=== PATIENT | female | born 1965 | race Caucasian/White ===

== ENCOUNTER 2019-08-16 12:01 | Emergency (ER) | payer OTHER, SELFPAY ==
--- OUTSIDE RECORDS SUMMARY | 2019-08-16 12:02 | XMS REPORT ---
:1965 [facility] [address] [place] [address] Care Team Providers Name Role Phone Unavailable Unavailable Unavailable Problems This patient has no known problems. Allergies, Adverse Reactions, Alerts This patient has no known allergies or adverse reactions. Medications This patient has no known medications.
--- NOTE | 2019-08-16 12:54 | RAD REPORT ---
EXAM DESCRIPTION: CT - Head Brain Wo Cont - 08/16/2019 12:45 pm CLINICAL HISTORY: Dizziness COMPARISON: 2017 TECHNIQUE: Computed axial tomography of the head was obtained. IV contrast was not requested. All CT scans are performed using dose optimization technique as appropriate and may include automated exposure control or mA/KV adjustment according to patient size. FINDINGS: An intracranial bleed is not seen . The ventricles are normal in caliber. No extra-axial fluid collection is noted. Fluid within the sinuses/ mastoids is not seen. IMPRESSION: No acute intracranial abnormality is seen. If patient's symptoms persist MRI of the bra in would be recommended.
[2019-08-16] MEDS ORDERED: MECLIZINE HCL 12.5 MG TAB ONE (13:04)
[2019-08-16] MEDS ORDERED: ONDANSETRON 4 MG/2 ML VIAL ONE (13:04)
[2019-08-16] MEDS ORDERED: KETOROLAC 30 MG/ML INJ ONE (13:04)
[2019-08-16 13:20] LABS: Absolute Lymphocytes (CBC) 2.1 K/uL (0.7-4.9); Basophils % 1.2 % (0-1.3); Hematocrit 38.3 % (36.0-45.0); Lymphocytes % 35.2 % (15.3-44.8); Protime INR 0.99; RBC Red Blood Cell Count 4.36 M/uL (3.86-4.86)
[2019-08-16 13:28] LABS: ALT/SGPT 23 U/L (12-78); AST/SGOT 20 U/L (15-37); Albumin 3.7 g/dL (3.4-5.0); Alkaline Phosphatase 89 U/L (45-117); BUN Blood Urea Nitrogen 19 mg/dL (7-18); Bicarbonate 28 mmol/L (21-32); Bilirubin Direct 0.1 mg/dL (0-0.2); Bilirubin Total 0.4 mg/dL (0.2-1.0); Glucose Level 103 mg/dL (74-106); Magnesium 2.5 mg/dL (1.8-2.4); NT PRO-BNP 133 pg/mL (<125); Potassium 4.3 mmol/L (3.5-5.1); Protein, Total 7.2 g/dL (6.4-8.2); Sodium Level 137 mmol/L (136-145); Troponin (Emerg Dept Use Only) < 0.02 ng/mL (0.0-0.045)
--- NOTE | 2019-08-16 13:47 | EKG ---
Test Date: 2019-08-16 Test Time: 12:38:10 Golf Coach: DARION MEASUREMENT RESULTS: Intervals: Rate: 48 SC: 178 QRSD: 90 QT: 460 QTc: 410 [place]: P: 36 SC: 178 QRS: 78 T: 61 INTERPRETIVE STATEMENTS: Marked sinus bradycardia Abnormal ECG Compared to ECG 08/07/2017 08:23:20 No significant changes Electronically Signed On 08-16-19 13:46:42 METAL DRILL PRESS OPERATOR by Mariusz Montilla
--- NOTE | 2019-08-16 13:58 | RAD REPORT ---
EXAM DESCRIPTION: RAD - Chest Single View - 08/16/2019 1:39 pm COMPARISON: Chest Single View dated 08/07/2017; Chest Single View dated 08/06/2017 TECHNIQUE: AP portable chest image was obtained 1330 . FINDINGS: Hours no focal lung parenchymal process seen. Interstitial pattern matches comparison. Hea rt and vasculature are normal. No measurable pleural effusion and no pneumothorax. No acute bony abno rmality seen. No acute aortic findings suspected. IMPRESSION: No acute cardiopulmonary process. No significant interval change.
--- NOTE | 2019-08-16 14:10 | ER ---
Nurse's Notes Formerly [facility] Name: Jazzy Hernandez Age: 54 yrs Sex: Female : 1965 Arrival Date: 08/16/2019 Time: 12:03 Bed 23 Private MD: Diagnosis: Benign paroxysmal vertigo;Headache Presentation: 08/16 12:13 Presenting complaint: Patient states: dizziness that is worse when repositioning, began ss at 0100 this morning. Pt reports she has had an intermittent headache for the past week. Transition of care: patient was not received from another setting of care. Onset of symptoms was August 16, 2019. Risk Assessment: Do you want to hurt yourself or someone else? Patient reports no desire to harm self or others. Initial Sepsis Screen: Does the patient meet any 2 criteria? No. Patient's initial sepsis screen is negative. Does the patient have a suspected source of infection? No. Patient's initial sepsis screen is negative. Care prior to arrival: "Tylenol this AM". 12:13 Method Of Arrival: Ambulatory ss 12:13 Acuity: EMMA 3 ss Historical: - Allergies: 12:21 Codeine; ss - PMHx: 12:21 Asthma; GERD; ss - PSHx: 12:21 Partial Hysterectomy; ss - Immunization history:: Adult Immunizations up to date. - Social history:: Smoking status: Patient/guardian denies using tobacco. - Ebola Screening: : Patient denies exposure to infectious person Patient denies travel to an Ebola-affected area in the 21 days before illness onset. Screenin:25 Abuse screen: Denies threats or abuse. Denies injuries from another. Nutritional ca1 screening: No deficits noted. Tuberculosis screening: No symptoms or risk factors identified. Fall Risk IV access (20 points). Assessment: 12:50 Reassessment: pt in CT. em 13:10 General: Appears in no apparent distress. uncomfortable, well groomed, well developed, em well nourished, Behavior is calm, cooperative, appropriate for age, Denies fever. Pain: Complains of pain in head Pain currently is 7 out of 10 on a pain scale. Pain began 0100. Neuro: Level of Consciousness is awake, alert, obeys commands, Oriented to person, place, time, situation, Appropriate for age Moves all extremities. Gait is unsteady, Speech is normal, Reports dizziness, headache photophobia. Cardiovascular: Capillary refill < 3 seconds Patient's skin is warm and dry. Respiratory: Airway is patent Respiratory effort is even, unlabored, Respiratory pattern is regular, symmetrical. GI: Reports nausea, Patient currently denies vomiting. Derm: Skin is intact, is healthy with good turgor, Skin is pink, warm \\T\\ dry. Musculoskeletal: Capillary refill < 3 seconds, Range of motion: intact in all extremities. 14:12 Reassessment: Patient appears in no apparent distress at this time. Patient and/or em family updated on plan of care and expected duration. Pain level reassessed. Patient is alert, oriented x 3, equal unlabored respirations, skin warm/dry/pink. rates pain 1/10 Patient states feeling better. Patient states symptoms have improved. Vital Signs: 12:21 BP 117 / 55; Pulse 75; Resp 16; Temp 97.5(TE); Pulse Ox 100% on R/A; Weight 81.19 kg; ss Height 5 ft. 7 in. (170.18 cm); Pain 7/10; 13:22 BP 135 / 63; Pulse 48; Resp 17 S; Pulse Ox 98% on R/A; ca1 12:21 Body Mass Index 28.04 (81.19 kg, 170.18 cm) ss ED Course: 12:03 Patient arrived in ED. mr 12:15 JudeKen, KRIS is Primary Nurse. em 12:20 Triage completed. ss 12:21 Arm band placed on right wrist. ss 12:25 Patient has correct armband on for positive identification. Placed in gown. Bed in low ca1 position. Call light in reach. Side rails up X2. Pulse ox on. NIBP on. Door closed. Noise minimized. Visitors limited. Lights dimmed. Warm blanket given. 12:25 No provider procedures requiring assistance completed. Inserted saline lock: 22 gauge ca1 in right antecubital area, using aseptic technique. Blood collected. 12:26 Initial lab(s) drawn, by ED staff, held in ED. jp3 12:27 Safety checks: Family/friend present: yes. jp3 12:39 eRg Hooks NP is PHCP. pm1 12:39 Stewart Ames MD is Attending Physician. pm1 12:43 EKG done, by ED staff, reviewed by Reg Hooks NP. jp3 12:53 CT Head Brain wo Cont In Process Unspecified. EDMS 13:40 XRAY Chest (1 view) In Process Unspecified. EDMS Administered Medications: 13:15 Drug: Meclizine 50 mg Route: PO; iw 14:12 Follow up: Response: No adverse reaction; Marked relief of symptoms em 13:16 Drug: TORadol - Ketorolac 15 mg Route: IVP; Site: right antecubital; iw 14:12 Follow up: Response: No adverse reaction; Marked relief of symptoms; Pain is decreased em 13:18 Drug: Zofran 4 mg Route: IVP; Site: right antecubital; iw 14:12 Follow up: Response: No adverse reaction; Nausea is decreased em 14:12 Drug: Valium 2 mg Route: PO; em 14:37 Follow up: Response: Medication administered at discharge. em Outcome: 14:09 Discharge ordered by MD. pm1 14:36 Discharged to home ambulatory, with family. em 14:36 Condition: good 14:36 Discharge instructions given to patient, family, Instructed on discharge instructions, follow up and referral plans. medication usage, Demonstrated understanding of instructions, follow-up care, medications, Prescriptions given X 2. 14:37 Patient left the ED. em Signatures: Dispatcher [employer] EDND Massimo Jenna Roque, Ken, TRAVEL PROFESSIONAL TRAVEL PROFESSIONAL em Tamiko Walters, Grisel Zhang RN, RN RN ss Marinas, Patrick, NP EVENT MGR pm1 Jaya Purvis jp3 Kelly Whyte RN RN ca1
--- NOTE | 2019-08-16 14:11 | EDPHYS ---
Physician Documentation [facility] Name: Jazzy Hernandez Age: 54 yrs Sex: Female : 1965 Arrival Date: 08/16/2019 Time: 12:03 Bed 23 Private MD: ED Physician Stewart Ames HPI: 08/16 12:45 This 54 yrs old Female presents to ER via Ambulatory with complaints of pm1 Dizziness, Headache, Nausea. 12:45 The patient presents with dizziness. pm1 12:45 Onset: The symptoms/episode began/occurred this morning. Context: occurred at home, pm1 just prior to the episode the patient experienced no apparent symptoms. Modifying factors: The symptoms are alleviated by holding head still, the symptoms are aggravated by movement of head, changing position. Associated signs and symptoms: Pertinent positives: headache, nausea, Pertinent negatives: abdominal pain, chest pain, shortness of breath, vomiting. Severity of symptoms: in the emergency department the symptoms are unchanged. The patient has not experienced similar symptoms in the past. The patient has not recently seen a physician. Historical: - Allergies: 12:21 Codeine; ss - PMHx: 12:21 Asthma; GERD; ss - PSHx: 12:21 Partial Hysterectomy; ss - Immunization history:: Adult Immunizations up to date. - Social history:: Smoking status: Patient/guardian denies using tobacco. - Ebola Screening: : Patient denies exposure to infectious person Patient denies travel to an Ebola-affected area in the 21 days before illness onset. ROS: 12:45 Constitutional: Negative for fever, chills, and weight loss, Eyes: Negative for injury, pm1 pain, redness, and discharge, ENT: Negative for injury, pain, and discharge, Neck: Negative for injury, pain, and swelling, Cardiovascular: Negative for chest pain, palpitations, and edema, Respiratory: Negative for shortness of breath, cough, wheezing, and pleuritic chest pain, Back: Negative for injury and pain. 12:45 MS/Extremity: Negative for injury and deformity, Skin: Negative for injury, rash, and discoloration. 12:45 Abdomen/GI: Positive for nausea, Negative for abdominal pain, vomiting, diarrhea, constipation. 12:45 Neuro: Positive for dizziness, headache, Negative for numbness, tingling, weakness. Exam: 12:45 Constitutional: This is a well developed, well nourished patient who is awake, alert, pm1 and in no acute distress. Head/Face: Normocephalic, atraumatic. Eyes: Pupils equal round and reactive to light, extra-ocular motions intact. Lids and lashes normal. Conjunctiva and sclera are non-icteric and not injected. Cornea within normal limits. Periorbital areas with no swelling, redness, or edema. ENT: Nares patent. No nasal discharge, no septal abnormalities noted. Tympanic membranes are normal and external auditory canals are clear. Oropharynx with no redness, swelling, or masses, exudates, or evidence of obstruction, uvula midline. Mucous membranes moist. Neck: Trachea midline, no thyromegaly or masses palpated, and no cervical lymphadenopathy. Supple, full range of motion without nuchal rigidity, or vertebral point tenderness. No Meningismus. Chest/axilla: Normal chest wall appearance and motion. Nontender with no deformity. No lesions are appreciated. Cardiovascular: Regular rate and rhythm with a normal S1 and S2. No gallops, murmurs, or rubs. Normal PMI, no JVD. No pulse deficits. Respiratory: Lungs have equal breath sounds bilaterally, clear to auscultation and percussion. No rales, rhonchi or wheezes noted. No increased work of breathing, no retractions or nasal flaring. Abdomen/GI: Soft, non-tender, with normal bowel sounds. No distension or tympany. No guarding or rebound. No evidence of tenderness throughout. Back: No spinal tenderness. No costovertebral tenderness. Full range of motion. Skin: Warm, dry with normal turgor. Normal color with no rashes, no lesions, and no evidence of cellulitis. MS/ Extremity: Pulses equal, no cyanosis. Neurovascular intact. Full, normal range of motion. 12:45 Eyes: Nystagmus: horizontal nystagmus with looking at 9 o'clock, sensation of spinning increased with rotating head to the left side. Vital Signs: 12:21 BP 117 / 55; Pulse 75; Resp 16; Temp 97.5(TE); Pulse Ox 100% on R/A; Weight 81.19 kg; ss Height 5 ft. 7 in. (170.18 cm); Pain 7/10; 13:22 BP 135 / 63; Pulse 48; Resp 17 S; Pulse Ox 98% on R/A; ca1 12:21 Body Mass Index 28.04 (81.19 kg, 170.18 cm) MDM: 12:51 Patient medically screened. pm1 13:59 Data reviewed: vital signs. Data interpreted: Pulse oximetry: on room air is 98 %. pm1 Interpretation: normal. 14:08 Counseling: I had a detailed discussion with the patient and/or guardian regarding: the pm1 historical points, exam findings, and any diagnostic results supporting the discharge/admit diagnosis, lab results, radiology results, the need for outpatient follow up, to return to the emergency department if symptoms worsen or persist or if there are any questions or concerns that arise at home. 08/16 12:45 Order name: Basic Metabolic Panel; Complete Time: 13:37 pm08/16 12:45 Order name: CBC with Diff; Complete Time: 13:37 pm08/16 12:45 Order name: LFT's; Complete Time: 13:37 pm08/16 12:45 Order name: Magnesium; Complete Time: 13:37 pm08/16 12:45 Order name: NT PRO-BNP; Complete Time: 13:37 pm08/16 12:45 Order name: PT-INR; Complete Time: 13:37 pm08/16 12:22 Order name: CT Head Brain wo Cont; Complete Time: 13:37 ss 08/16 12:45 Order name: Troponin (emerg Dept Use Only); Complete Time: 13:37 pm08/16 12:45 Order name: XRAY Chest (1 view); Complete Time: 14:13 pm08/16 12:45 Order name: EKG; Complete Time: 12:46 pm08/16 12:45 Order name: Cardiac monitoring; Complete Time: 12:48 pm08/16 12:45 Order name: EKG - Nurse/Tech; Complete Time: 12:48 pm08/16 12:45 Order name: IV Saline Lock; Complete Time: 12:48 pm08/16 12:45 Order name: Labs collected and sent; Complete Time: 12:49 pm08/16 12:45 Order name: O2 Per Protocol; Complete Time: 12:49 pm08/16 12:45 Order name: O2 Sat Monitoring; Complete Time: 12:49 pm1 Administered Medications: 13:15 Drug: Meclizine 50 mg Route: PO; iw 14:12 Follow up: Response: No adverse reaction; Marked relief of symptoms em 13:16 Drug: TORadol - Ketorolac 15 mg Route: IVP; Site: right antecubital; iw 14:12 Follow up: Response: No adverse reaction; Marked relief of symptoms; Pain is decreased em 13:18 Drug: Zofran 4 mg Route: IVP; Site: right antecubital; iw 14:12 Follow up: Response: No adverse reaction; Nausea is decreased em 14:12 Drug: Valium 2 mg Route: PO; em 14:37 Follow up: Response: Medication administered at discharge. em Disposition: 19:11 Co-signature as Attending Physician, Stewart Ames MD I agree with the assessment and kdr plan of care. Disposition: 08/16/19 14:09 Discharged to Home. Impression: Benign paroxysmal vertigo, Headache. - Condition is Stable. - Discharge Instructions: Benign Positional Vertigo, General Headache Without Cause. - Prescriptions for Meclizine 25 mg Oral Tablet - take 1 tablet by ORAL route every 8 hours As needed; 30 tablet. Valium 2 mg Oral Tablet - take 1 tablet by ORAL route every 8 hours As needed; 10 tablet. - Medication Reconciliation Form, Thank You Letter, Antibiotic Education, Prescription Opioid Use form. - Follow up: Emergency Department; When: As needed; Reason: Worsening of condition. Follow up: Private Physician; When: 2 - 3 days; Reason: Recheck today's complaints, Continuance of care, Re-evaluation by your physician. - Problem is new. - Symptoms have improved. Signatures: Dispatcher [employer] EDStewart Jauregui MD MD kdr Munoz, Edgar, CIGAR MAKING SUPERVISOR CIGAR MAKING SUPERVISOR em Tamiko Walters RN RN iw Grisel Armando RN RN ss Marinas, Patrick, NP ELECTRIC TRIPPER MACHINE OPERATOR pm1 Corrections: (The following items were deleted from the chart) 14:37 14:09 08/16/2019 14:09 Discharged to Home. Impression: Benign paroxysmal vertigo; em Headache. Condition is Stable. Forms are Medication Reconciliation Form, Thank You Letter, Antibiotic Education, Prescription Opioid Use. Follow up: Emergency Department; When: As needed; Reason: Worsening of condition. Follow up: Private Physician; When: 2 - 3 days; Reason: Recheck today's complaints, Continuance of care, Re-evaluation by your physician. Problem is new. Symptoms have improved. pm1
[2019-08-16] MEDS ORDERED: DIAZEPAM 2 MG TABLET ONE (14:13)
[2019-08-16 14:44] VITALS: TEMP 97.5
[2019-08-16 14:45] VITALS: BP 135/63; O2SAT 98
== END 2019-08-16 14:37 | disposition home or self-care (01) ==
LOC: ER 12:01
DX: H81.10 Benign paroxysmal vertigo, unspecified ear (principal); Z88.5 Allergy status to narcotic agent
CPT/HCPCS: 36415; 70450; 71045; 80048; 80076; 83735; 83880; 84484; 85025; 85610; 93005; 96374; 96375; 99284; J2405; J8597